=== PATIENT | female | born 1940 | race Caucasian/White ===

== ENCOUNTER → 2018-04-29 | Outpatient (CLI) | payer MEDICARE | LOC: MAMMO 10:39 | DX: Z12.31 Encounter for screening mammogram for malignant neoplasm of breast (principal) ==

== ENCOUNTER → 2019-04-27 | Outpatient (CLI) | payer MEDICARE | LOC: MAMMO 10:38 | DX: Z12.31 Encounter for screening mammogram for malignant neoplasm of breast (principal) ==